=== PATIENT | female | born 1990 | race Caucasian/White ===

== ENCOUNTER 2017-08-09 17:41 | Emergency (ER) | payer SELFPAY ==
[~2017-08-09] VITALS: Ht 152.4 cm; Wt 54.4 kg
[~2017-08-09 17:41] MED LIST: ACHD5005 PO; ALPR1T PO; AMOX500C2 PO; BIRTH CONTROL; BSP10T PO; CEFD300C3 PO; CEPH500C PO; CODE-54 PO; CODE118S2 PO; CPR500T PO; CYCL10TA9 PO; DCS100C PO; DIAZ5TAB3; DIAZ5TAB3 PO; DOCU100C37 PO; FERR256T PO; HYDR-1231 PO; HYDR-3720; HYDR-690; HYDR-700 PO; HYDR-757 PO; HYDR1TAB PO; HYDR1TAB8 OP; IBP600T1 PO; IBUP-1773 PO; IRON1TAB94 PO; METO-354 PO; METR500T PO; MULT-239; ONDA8TAB9 PO; ONDAN4ODT PO; PNV11TAB PO; POLY17PO6 PO; PRC25SU PR; PREN-115 PO; PREN1TAB71 PO; PRM25T PO; PROM25SU10 PR; PRX20T PO; TMSL.4C PO; TRM50T PO; ZLP10T PO; [UNRECOGNIZED DRUG - REMARK]
[2017-08-09] MEDS ORDERED: LACTATED RINGERS 1,000 ML IV ONE (18:08)
--- NOTE | 2017-08-09 18:16 | ED Abdominal Pain ---
General Stated Complaint: ABD PAIN Source of Information: Patient Exam Limitations: No Limitations History of Present Illness Date Seen by Provider: Aug 09, 2017 Time Seen by Provider: 18:05 Initial Comments Patient presents to ER by private conveyance with a chief complaint of for 3 weeks she's had progressively worsening waxing and waning left lower quadrant abdominal pain that is not associated with her. Nor is it associated with bowel movements. She had a bowel movement today but she feels she's had to strain all been been constipated. She says she's had a fever with a MAXIMUM TEMPERATURE of 99.1F. She claims she's had some nausea and is nauseated presently but has not vomited or had any diarrhea, rash, cough or shortness of breath. She says she is also felt a little malaise and had some swollen lymph nodes in the back of her neck and felt like she has had a cold coming on as well. She denies any vaginal discharge or dysuria. Her last menstrual period ended 2 days ago. She's had a history of 2 C-sections on her abdomen no other surgeries. No recent trauma. She has not had this worked up nor she used any Tylenol, Motrin or other medicines [id number]. Allergies and Home Medications Allergies Coded Allergies: erythromycin base (Unverified Allergy, Mild, 11/02/08) Home Medications No Active Prescriptions or Reported Meds Review of Systems Constitutional: No chills, fever, malaise EENTM: No Blurred Vision, No Double Vision Respiratory: Denies Cough, Denies Shortness of Air Cardiovascular: Denies Chest Pain, Denies Palpitations Gastrointestinal: See HPI, Denies Abdomen Distended, Abdominal Pain, Constipated, Denies Diarrhea, Nausea, Denies Poor Appetite, Denies Poor Fluid Intake, Denies Vomiting Genitourinary: Denies Burning, Denies Discharge, Denies Drainage Musculoskeletal: No back pain, No joint pain Skin: No pruritus, No rash Past [id number] Hx Patient Social History Alcohol Use: Denies Use Recreational Drug Use: No Smoking Status: Former Smoker Type Used: Cigarettes Former Smoker, Quit: Feb 19, 2017 Recent Foreign Travel: No Contact w/Someone Who Travel: No Recent Hopitalizations: No Immunizations Up To Date Tetanus Booster (TDap): Unknown Date of Influenza Vaccine: Jul 09, 2012 Seasonal Allergies Seasonal Allergies: No Surgeries Surgeries: Section Reproductive System Hx Reproductive Disorders: No Sexually Transmitted Disease: Yes (Chlamydia) Family Medical History Significant Family History: No Pertinent Family Hx Family Medial History: FH: cancer GRANDPARENTS Physical Exam Vital Signs VS - Last 72 Hours, by Label 08/09/17 18:01 Temp 98.1 Pulse 128 Resp 18 B/P (MAP) 131/85 (100) Pulse Ox 95 Capillary Refill : General Appearance: WD/WN, no apparent distress HEENT: PERRL/EOMI, normal ENT inspection, TMs normal (bilateral TMs with a mild clear mucoid effusion.), pharynx normal (nonerythematous and no exudate) Neck: non-tender, full range of motion, supple, normal inspection, lymphadenopathy (R), lymphadenopathy (L) (mild shoddy bilateral posterior lymphadenopathy) Respiratory: chest non-tender, lungs clear, normal breath sounds, no respiratory distress, no accessory muscle use Cardiovascular: normal peripheral pulses, regular rate, rhythm, no edema Peripheral Pulses: 2+ Dorsalis Pedis (R), 2+ Left Dors-Pedis (L) Gastrointestinal: normal bowel sounds, non tender, soft, no organomegaly, No spleenomegaly Extremities: no pedal edema, normal capillary refill Back: normal inspection, no CVA tenderness, no vertebral tenderness Neurologic/Psychiatric: alert, oriented x 3 Skin: normal color, warm/dry Progress/Results/Core Measures Results/Orders Lab Results Laboratory Tests Test 08/09/17 18:20 08/09/17 18:35 Range/Units White Blood Count 8.1 4.3-11.0 10^3/uL Red Blood Count 4.61 4.35-5.85 10^6/uL Hemoglobin 14.0 11.5-16.0 G/DL Hematocrit 40 35-52 % Mean Corpuscular Volume 86 80-99 FL Mean Corpuscular Hemoglobin 30 25-34 PG Mean Corpuscular Hemoglobin Concent 35 32-36 G/DL Red Cell Distribution Width 11.3 10.0-14.5 % Platelet Count 309 130-400 10^3/uL Mean Platelet Volume 9.6 7.4-10.4 FL Neutrophils (%) (Auto) 58 42-75 % Lymphocytes (%) (Auto) 33 12-44 % Monocytes (%) (Auto) 5 0-12 % Eosinophils (%) (Auto) 4 0-10 % Basophils (%) (Auto) 0 0-10 % Neutrophils # (Auto) 4.7 1.8-7.8 X 10^3 Lymphocytes # (Auto) 2.7 1.0-4.0 X 10^3 Monocytes # (Auto) 0.4 0.0-1.0 X 10^3 Eosinophils # (Auto) 0.3 0.0-0.3 10^3/uL Basophils # (Auto) 0.0 0.0-0.1 10^3/uL Sodium Level 138 135-145 MMOL/L Potassium Level 3.8 3.6-5.0 MMOL/L Chloride Level 104 98-107 MMOL/L Carbon Dioxide Level 22 21-32 MMOL/L Anion Gap 12 5-14 MMOL/L Blood Urea Nitrogen 11 7-18 MG/DL Creatinine 0.74 0.60-1.30 MG/DL Estimat Glomerular Filtration Rate > 60 BUN/Creatinine Ratio 15 Glucose Level 97 70-105 MG/DL Calcium Level 9.4 8.5-10.1 MG/DL Total Bilirubin 0.4 0.1-1.0 MG/DL Aspartate Amino Transf (AST/SGOT) 15 5-34 U/L Alanine Aminotransferase (ALT/SGPT) 12 0-55 U/L Alkaline Phosphatase 43 40-136 U/L C-Reactive Protein High Sensitivity 0.01 0.00-0.50 MG/DL Total Protein 7.6 6.4-8.2 GM/DL Albumin 4.6 H 3.2-4.5 GM/DL Monoscreen NEGATIVE NEGATIVE Urine Color YELLOW Urine Clarity CLEAR Urine pH 7 5-9 Urine Specific [place] 1.010 L 1.016-1.022 Urine Protein NEGATIVE NEGATIVE Urine Glucose (UA) NEGATIVE NEGATIVE Urine Ketones NEGATIVE NEGATIVE Urine Nitrite NEGATIVE NEGATIVE Urine Bilirubin NEGATIVE NEGATIVE Urine Urobilinogen NORMAL NORMAL MG/DL Urine Leukocyte Esterase 1+ H NEGATIVE Urine RBC (Auto) 2+ H NEGATIVE Urine RBC 0-2 /HPF Urine WBC 2-5 /HPF Urine Squamous Epithelial Cells >50 H /HPF Urine Crystals NONE /LPF Urine Bacteria NEGATIVE /HPF Urine Casts NONE /LPF Urine Mucus NEGATIVE /LPF Urine Culture Indicated NO Urine Test NEGATIVE NEGATIVE Urine Opiates Screen NEGATIVE NEGATIVE Urine Oxycodone Screen NEGATIVE NEGATIVE Urine Methadone Screen NEGATIVE NEGATIVE Urine Propoxyphene Screen NEGATIVE NEGATIVE Urine Barbiturates Screen NEGATIVE NEGATIVE Ur Tricyclic Antidepressants Screen NEGATIVE NEGATIVE Urine Phencyclidine Screen NEGATIVE NEGATIVE Urine Amphetamines Screen NEGATIVE NEGATIVE Urine Methamphetamines Screen NEGATIVE NEGATIVE Urine Benzodiazepines Screen NEGATIVE NEGATIVE Urine Cocaine Screen NEGATIVE NEGATIVE Urine Cannabinoids Screen NEGATIVE NEGATIVE My Orders Orders - ROBERT BEYER Elisabeth Cbc With Automated Diff (08/09/17 18:08) Comprehensive Metabolic Panel (08/09/17 18:08) Hs C Reactive Protein (08/09/17 18:08) Drug Screen Stat (Urine) (08/09/17 18:08) Hcg,Qualitative Urine (08/09/17 18:08) Monotest (08/09/17 18:08) Ua Culture If Indicated (08/09/17 18:08) Saline Lock/Iv-Start (08/09/17 18:08) Lactated Ringers (Lr 1000 Ml Iv Solution (08/09/17 18:08) Ondansetron Injection (Zofran Injectio (08/09/17 18:30) Ketorolac Injection (Toradol Injection) (08/09/17 18:30) Medications Given in ED Current Medications Medications Dose Ordered Sig/Juaquin Route Start Time Stop Time Status Last Admin Dose Admin Ketorolac Tromethamine 15 mg ONCE ONCE IVP 08/09/17 18:30 08/09/17 18:31 DC 08/09/17 18:30 15 MG Lactated Ringer's 1,000 ml @ 0 mls/hr Q0M ONCE IV 08/09/17 18:08 08/09/17 18:12 DC 08/09/17 18:31 1,000 MLS/HR Ondansetron HCl 4 mg ONCE ONCE IVP 08/09/17 18:30 08/09/17 18:31 DC 08/09/17 18:29 4 MG Vital Signs/I&O Vital Sign - Last 12Hours 08/09/17 18:01 Temp 98.1 Pulse 128 Resp 18 B/P (MAP) 131/85 (100) Pulse Ox 95 Progress Note #1: Time: 18:14 Progress Note Patient claims some subjective fevers as well as some posterior lymphadenopathy. No splenomegaly and check a Monospot. Constipation could explain some of her goal waxing and waning abdominal pain. Before we do any imaging on her abdomen reveals no start some blood and urine. Other possibilities include things such as gynecologic pain such as a ovarian cyst. Her pain does not seem severe enough or reproducible so torsion is probably unlikely given the 3 weeks onset. PID is unlikely given her low level of discomfort nontender abdomen and no discharge or fever. She's not had any Tylenol or Motrin yet so we'll give her some ketorolac and Zofran. Progress Note #2: Time: 20:55 Progress Note Labs and vitals are unremarkable. Her nausea has gone however her pain did not totally go away. Differential still exists between: Versus gynecologic however does not seem to be emergent and we have discussed doing more workup with a CT scan of her abdomen pelvis versus try to get her colon cleaned out and then follow up if needed in the clinic for possible ultrasound of the pelvis and she would prefer the latter option. We will give her some opioids to use after she cleaned out well with MiraLAX in case her pain persists while she is waiting to get into her primary care physician as well as some nausea medicines. She is been given strict return precautions. Departure Impression Impression: Primary Impression: Constipation Qualified Codes: K59.00 - Constipation, unspecified Additional Impression: Left lower quadrant abdominal pain of unknown etiology Disposition: 01 HOME, SELF-CARE Condition: Improved Departure-Patient Inst. Decision time for Depature: 20:56 Referrals: [facility] (PCP) Primary Care Physician MUNA MASON (Family) Primary Care Physician Patient Instructions: Acute Abdomen (Belly Pain), Adult (DC) Add. Discharge Instructions: Drink lots of fluids. locomotive supervisor a bottle of MiraLAX and mix 1 capful in 8 ounces of whatever your fluid of choice and drink it up to 4 times a day until you feel that you have had a couple days of good loose stools. If your pain persists even after a good clean out of your: Been more likely her pain is due to something in the pelvis and you'll need to follow up with your primary care physician to get an ultrasound of the pelvis set up. If at that time the pain is unbearable and not controlled with heating pads, Tylenol 1000 g every 8 hours and/or ibuprofen 800 mg every 8 hours then you can use the breakthrough hydrocodone pain medicine. Hydrocodone will cause worsening constipation so do not use it while you're trying to have your colon cleanout. If however you develop fevers, intractable nausea and vomiting or severe worsening pain in her abdomen you should return to the ER for sooner evaluation and management. Scripts Hydrocodone Bit/Acetaminophen (Hydrocodone/Acetaminophen 5/325mg Tablet) 1 Tab Tab 1 EACH PO Q6H Y for BREAKTHROUGH PAIN, #10 TAB 0 Refills Prov: ROBERT BEYER 08/09/17 Ondansetron (Zofran Odt) 4 Mg Tab.rapdis 4 MG PO Q6H Y for NAUSEA/VOMITING-1ST LINE, #10 TAB 0 Refills Prov: ROBERT BEYER 08/09/17 Copy Copies To 1: RAKESH THOMAS TITUS J Aug 09, 2017 18:16
[2017-08-09 18:27] LABS: BASOPHILS % (AUTO) 0 % (0-10); EOSINOPHILS # (AUTO) 0.3 10^3/uL (0.0-0.3); EOSINOPHILS % (AUTO) 4 % (0-10); HEMATOCRIT 40 % (35-52); LYMPHOCYTES # (AUTO) 2.7 X 10^3 (1.0-4.0); LYMPHOCYTES % (AUTO) 33 % (12-44); MEAN CORPUSCULAR HEMOGLOBIN 30 PG (25-34); MEAN CORPUSCULAR HGB CONC 35 G/DL (32-36); MEAN CORPUSCULAR VOLUME 86 FL (80-99); MEAN PLATELET VOLUME 9.6 FL (7.4-10.4); MONOCYTES # (AUTO) 0.4 X 10^3 (0.0-1.0); MONOCYTES % (AUTO) 5 % (0-12); NEUTROPHILS # (AUTO) 4.7 X 10^3 (1.8-7.8); NEUTROPHILS % (AUTO) 58 % (42-75); PLATELET COUNT 309 10^3/uL (130-400); RED BLOOD COUNT 4.61 10^6/uL (4.35-5.85); RED CELL DISTRIBUTION WIDTH 11.3 % (10.0-14.5); WHITE BLOOD COUNT 8.1 10^3/uL (4.3-11.0)
[2017-08-09] MEDS ORDERED: ONDANSETRON 4 MG/2 ML (SDV) Z0FRAN IVP ONE (18:30)
[2017-08-09] MEDS ORDERED: KETOROLAC 30 MG/ML VIAL IVP ONE (18:30)
[2017-08-09 18:41] LABS: BILIRUBIN,URINE NEGATIVE (NEGATIVE); CLARITY,URINE CLEAR; COLOR,URINE YELLOW; GLUCOSE, URINE (UA) NEGATIVE (NEGATIVE); KETONES,URINE NEGATIVE (NEGATIVE); LEUKOCYTE ESTERASE ,URINE 1+ (NEGATIVE); NITRITE,URINE NEGATIVE (NEGATIVE); PH,URINE 7 (5-9); PROTEIN,URINE NEGATIVE (NEGATIVE); UROBILINOGEN,URINE NORMAL (NORMAL)
[2017-08-09 18:48] LABS: RBC,URINE 0-2 /HPF
[2017-08-09 18:49] LABS: BACTERIA,URINE NEGATIVE /HPF; SQUAMOUS EPITHELIAL CELL,UR >50 /HPF
[2017-08-09 18:52] LABS: ALANINE AMINOTRANSFERASE 12 U/L (0-55); ALBUMIN 4.6 GM/DL (3.2-4.5); ALKALINE PHOSPHATASE 43 U/L (40-136); BILIRUBIN,TOTAL 0.4 MG/DL (0.1-1.0); BUN/CREATININE RATIO 15; CALCIUM 9.4 MG/DL (8.5-10.1); CARBON DIOXIDE 22 MMOL/L (21-32); CHLORIDE 104 MMOL/L (98-107); CREATININE SERUM 0.74 MG/DL (0.60-1.30); GFR ESTIMATED > 60; GLUCOSE 97 MG/DL (70-105); POTASSIUM 3.8 MMOL/L (3.6-5.0); SODIUM 138 MMOL/L (135-145); TOTAL PROTEIN 7.6 GM/DL (6.4-8.2)
[2017-08-09 18:56] LABS: AMPHETAMINE SCREEN, URINE NEGATIVE (NEGATIVE); BARBITURATE SCREEN URINE NEGATIVE (NEGATIVE); BENZODIAZEPINES SCREEN URINE NEGATIVE (NEGATIVE); CANNABINOID SCREEN, URINE NEGATIVE (NEGATIVE); COCAINE SCREEN URINE NEGATIVE (NEGATIVE); HCG,QUALITATIVE URINE NEGATIVE (NEGATIVE); METHADONE STAT NEGATIVE (NEGATIVE); METHAMPHETAMINE SCREEN URINE S NEGATIVE (NEGATIVE); OPIATE SCREEN URINE NEGATIVE (NEGATIVE); OXYCODONE STAT NEGATIVE (NEGATIVE); PROPOXYPHENE STAT NEGATIVE (NEGATIVE); TRICYCLIC ANTIDEPRESSANTS SCRE NEGATIVE (NEGATIVE)
--- OUTSIDE RECORDS SUMMARY | 2017-08-09 19:13 | XMS REPORT ---
Author MAHSA Benz Organization [employer] Address Unknown Phone Unavailable Care Team Providers Care Lime Filter Operator Name Role Phone MAHSA MELGAR CP Unavailable Allergies, Adverse Reactions, Alerts Substance Reaction Event Type Reglan hallucinations Drug Allergy Erythromycin Info Not Available Drug Allergy Seroquel Xr 50 Mg Tablet Extended Release 24 Hr Made pt very sleepy Non Drug Allergy Problems Problem Type Condition Code Onset Dates Condition Status Problem Previous delivery, unspecified as to episode of care or not applicable 654.20 Active Assessment Scabies B86 Active Problem Major depressive disorder, recurrent episode, 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 Active Problem Encounter for long-term (current) use of other medications V58.69 Active Problem PTSD (post-traumatic stress disorder) F43.10 Active Problem examination or test, positive result V72.42 Active Problem Major depressive disorder, recurrent episode, moderate 296.32 Active Problem Tobacco use disorder complicating , childbirth, or the puerperium, unspecified as to episode of care or not applicable 649.00 Active Problem Supervision of other normal V22.1 Active Medications Medication Code System Code Instructions Start Date End Date Status Dosage Naproxen [facility] [address]-90 250 MG Orally Twice a day 1 tablet Hydrocodone-Acetaminophen [facility] [address]-83 5-325 MG Orally every 6 hrs 1 tablet as needed Permethrin [facility] [address]-20 5 % Externally once January 16, 2016 apply neck down, wash off after 8-12 hours Procedures Procedure Coding System Code Date Office Visit, Est Pt., Level 3 CPT-4 22566 January 16, 2016 Vital Signs Date/Time: January 16, 2016 Cardiac Monitoring Heart Rate 90 bpm Weight 121.8 lbs Height 61 in Blood Pressure Diastolic 72 mmHg Blood Pressure Systolic 124 mmHg Results No Known Results Summary Purpose [employer] Submission
--- OUTSIDE RECORDS SUMMARY | 2017-08-09 19:13 | XMS REPORT ---
Author Author MAHSA MELGAR Organization [employer] Address Unknown Phone Unavailable Care Team Providers Care Sky Diver Name Role Phone MAHSA MELGAR Unavailable Allergies No Known Allergies Problems Problem Type Condition Code Onset Dates Condition Status Problem Previous delivery, unspecified as to episode of care or not applicable 654.20 Active Problem Major depressive disorder, recurrent episode, [...] Instructions Start Date End Date Status Dosage Permethrin [facility] [address]-39 5 % Externally Once a day January 18, 2016 apply neck down, wash off after 8-12 hours Results No Known Results Summary Purpose [employer] Submission
--- OUTSIDE RECORDS SUMMARY | 2017-08-09 19:13 | XMS REPORT ---
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 Active 465364717 Problem Previous delivery, unspecified as to episode of care or not applicable 654.20 Active 454432641 Problem Supervision of other normal V22.1 Active 058285959 Problem Major depressive disorder, recurrent episode, moderate 296.32 Active 69031324 Problem Tobacco use disorder complicating , childbirth, or the puerperium, unspecified as to episode of care or not applicable 649.00 Active ALLERGIES Substance Reaction Event Type Date Status Reglan hallucinations Drug Allergy Dec, Active Erythromycin Unknown Drug Allergy Dec, Active Seroquel Xr 50 Mg Tablet Extended Release 24 Hr Made pt very sleepy Non Drug Allergy Dec, Active SOCIAL HISTORY Never Assessed PLAN OF CARE Activity Details Follow Up prn Reason: VITAL SIGNS Height 61 in 2016-12-09 Weight 115.8 lbs 2016-12-09 Temperature 98.8 degrees Fahrenheit 2016-12-09 Heart Rate 84 bpm 2016-12-09 Respiratory Rate 18 2016-12-09 BMI 21.88 kg/m2 2016-12-09 Blood pressure systolic 112 mmHg 2016-12-09 Blood pressure diastolic 62 mmHg 2016-12-09 MEDICATIONS Medication Instructions Dosage Frequency Start Date End Date Duration Status Bactrim DS 800-160 MG Orally Twice a day 1 tablet 12h Dec,Dec 10 day(s) Active RESULTS No Results PROCEDURES No Known procedures IMMUNIZATIONS No Known Immunizations MEDICAL (GENERAL) HISTORY Type Description Date Medical History Anemia Medical History Back Trouble Surgical History C section 01/30/2013 Surgical History C section 03/17/2015 Hospitalization History C section 01/30/2013 Hospitalization History C section 03/17/2015
--- OUTSIDE RECORDS SUMMARY | 2017-08-09 19:13 | XMS REPORT ---
Author Author CONCEPCION DAILY Organization [employer] Address Unknown Phone Unavailable Care Team Providers Care Resilient Tile Installer Name Role Phone CONCEPCION DAILY CP Unavailable Allergies, Adverse Reactions, Alerts Substance Reaction Event Type Erythromycin Info Not Available Drug Allergy Problems Problem Type Condition Code Onset Dates Condition Status Assessment Pityriasis L21.0 Active Medications Medication Code System Code Instructions Start Date End Date Status Dosage Triamcinolone Acetonide [facility] [address]-44 0.1 % Externally Twice a day May 09, 2016 1 application to affected area HydrOXYzine HCl [facility] [address]-87 25 MG Orally every 8 hrs May 09, 2016 1 tablet as needed PredniSONE [facility] [address]-25 20 mg Orally Once a day May 09, 2016 May 14, 2016 2 tablets Procedures Procedure Coding System Code Date Office Visit, Est Pt., Level 3 CPT-4 99035 May 09, 2016 Vital Signs Date/Time: May 09, 2016 Cardiac Monitoring Heart Rate 112 bpm Weight 117.2 lbs Height 5 ft 1 in in BMI 22.14 Index Blood Pressure Diastolic 72 mmHg Blood Pressure Systolic 126 mmHg Results No Known Results Summary Purpose [employer] Submission
--- OUTSIDE RECORDS SUMMARY | 2017-08-09 19:13 | XMS REPORT ---
Author Author LAILA LEAVITT Organization [employer] Address Unknown Phone Unavailable Care Team Providers Care Commander Internal Affairs Name Role Phone LAILA LEAVITT CP Unavailable Allergies, Adverse Reactions, Alerts Substance Reaction Event Type Reglan hallucinations Drug Allergy Seroquel Xr 50 Mg Tablet Extended Release 24 Hr Made pt very sleepy Non Drug Allergy Problems Problem Type Condition Code Onset Dates Condition Status Problem Tobacco use disorder complicating , childbirth, or the puerperium, unspecified as to episode of care or not applicable 649.00 Active Problem Supervision of other normal V22.1 Active Problem Encounter for long-term (current) use of other medications V58.69 Active Problem Previous delivery, unspecified as to episode of care or not applicable 654.20 Active Assessment Dental examination V72.2 Active Problem examination or test, positive result V72.42 Active Problem Major depressive disorder, recurrent episode, moderate 296.32 Active Medications Medication Code System Code Instructions Start Date End Date Status Dosage ibuprofen ND 0 not defined MiraLax [facility] [address]-54 not defined Morris [facility] [address]-09 5-325 MG Orally every 6 hours Mar 28, 2015 Apr 01, 2015 1 tablet as needed Amoxicillin [facility] [address]-60 500 MG Orally every 6 hrs Mar 28, 2015 Apr 04, 2015 1 tablet Procedures Procedure Coding System Code Date INTRAORL-PERIAPICAL 1 FILM 93467 CPT-4 D0220 Mar 28, 2015 BITEWING - SINGLE FILM CPT-4 D0270 Mar 28, 2015 LTD ORAL EVALUATION - PROBLEM FOCUS CPT-4 D0140 Mar 28, 2015 Vital Signs Date/Time: Mar 28, 2015 Blood Pressure Diastolic 79 mmHg Blood Pressure Systolic 115 mmHg Height 61 in Results No Known Results Summary Purpose [employer] Submission
--- OUTSIDE RECORDS SUMMARY | 2017-08-09 19:14 | XMS REPORT ---
Author Author ISIDRO SMITH Organization [employer] Address Unknown Phone Unavailable Care Team Providers Care Credentialing Specialist Name Role Phone ISIDRO SMITH CP Unavailable Allergies, Adverse Reactions, Alerts Substance Reaction Event Type Erythromycin Info Not Available Drug Allergy Problems Problem Type Condition Code Onset Dates Condition Status Assessment Axillary pain, unspecified laterality M79.629 Active Medications No Known Medications Procedures Procedure Coding System Code Date Office Visit, New Pt., Level 1 CPT-4 64089 Apr 13, 2016 Vital Signs Date/Time: Apr 13, 2016 Cardiac Monitoring Heart Rate 76 bpm Weight 118 lbs Height 5 ft 1 in in BMI 22.29 Index Blood Pressure Diastolic 70 mmHg Blood Pressure Systolic 120 mmHg Results No Known Results Summary Purpose [employer] Submission
[2017-08-09] MEDS ORDERED: ONDA4TAB8 PO (20:59)
[2017-08-09] MEDS ORDERED: ACHD5005 PO (20:59)
[2017-08-09 21:07] VITALS: BP 0/0
== END 2017-08-09 21:07 | disposition home or self-care (01) ==
LOC: EDUNIT# 17:41 → ER 17:42
DX: K59.00 Constipation, unspecified (principal); R10.32 Left lower quadrant pain; Z87.891 Personal history of nicotine dependence; Z87.59 Personal history of other complications of pregnancy, childbirth and the puerperium; Z86.19 Personal history of other infectious and parasitic diseases
CPT/HCPCS: 36415; 80053; 80306; 81000; 84703; 85025; 86141; 86308; 96374; 96375

== ENCOUNTER 2020-05-15 19:27 | Observation (INO) | payer SELFPAY ==
[~2020-05-15] VITALS: Ht 152 cm; Wt 50.0 kg
[~2020-05-15 19:27] MED LIST changes: +HYDR-4226 PO; -HYDR-757 PO; +ONDA4TAB8 PO
[2020-05-15] MEDS ORDERED: NS IV 1000 ML 1,000 ML IV SCH ×3 (19:33→22:13)
[2020-05-15] MEDS ORDERED: ONDANSETRON 4 MG/2 ML (SDV) Z0FRAN IVP ONE (19:45)
--- NOTE | 2020-05-15 19:46 | ED Abdominal Pain ---
General Stated Complaint: ABD PAIN; VOMITING History of Present Illness Date Seen by Provider: May 15, 2020 Time Seen by Provider: 19:35 Initial Comments 30-year old female presents for right abdominal pain and vomiting since 1600 today. She reports multiple episodes. She denies any diarrhea or constipation. She's had no previous abdominal surgeries. She has been trying to take sips of water with no improvement in her symptoms. Timing/Duration: 4-6 Hours Severity/Quality: Moderate Location: RLQ Radiation: No Radiation Associated Symptoms: No Fever/Chills, No Headache, No Heartburn; Nausea/Vomiting Allergies and Home Medications Allergies Coded Allergies: erythromycin base (Unverified Allergy, Mild, 11/02/08) Home Medications Hydrocodone Bit/Acetaminophen 1 Tab Tab, 1 EACH PO Q6H PRN for BREAKTHROUGH PAIN Prescribed by: ROBERT BEYER on 08/09/172058 Ondansetron 4 Mg Tab.rapdis, 4 MG PO Q6H PRN for NAUSEA/VOMITING-1ST LINE Prescribed by: ROBERT BEYER on 08/09/172058 Patient Home Medication List Home Medication List Reviewed: Yes Review of Systems Review of Systems Constitutional: no symptoms reported, see HPI Gastrointestinal: See HPI, Abdominal Pain; Denies Constipated, Denies Diarrhea; Nausea, Vomiting All Other Systems Reviewed Negative Unless Noted: Yes Past Eidpwxh-Eitnpr-Nhvdtf Hx Past Med/Social Hx: Reviewed Nursing Past Med/Soc Hx Patient Social History Smoking Status: Light Tobacco Smoker (1/2 pack a month) Type Used: Cigarettes Former Smoker, Quit: Feb 19, 2017 Recent Foreign Travel: No Contact w/Someone Who Travel: No Recent Hopitalizations: No Immunizations Up To Date Tetanus Booster (TDap): Unknown Date of Influenza Vaccine: Jul 09, 2012 Seasonal Allergies Seasonal Allergies: No Past Medical History Surgeries: Yes (D&C) Section Respiratory: No Cardiac: Yes (SVT) Neurological: No Reproductive Disorders: No Sexually Transmitted Disease: Yes (Chlamydia) Gastrointestinal: No Musculoskeletal: No Endocrine: No Cancer: No Psychosocial: No Integumentary: No Blood Disorders: No Family Medical History FH: cancer GRANDPARENTS No Pertinent Family Hx Physical Exam Vital Signs Vital Signs - First Documented 05/15/20 19:34 Temp 36.5 Pulse 103 Resp 16 B/P (MAP) 129/90 (103) Pulse Ox 98 O2 Delivery Room Air Capillary Refill : Height/Weight/BMI Height: 5'1" Weight: 120lbs. 9.0oz. 54.343411jg; BMI Method:Stated General Appearance: WD/WN, no apparent distress HEENT: PERRL/EOMI, normal ENT inspection, TMs normal, pharynx normal, other (oral mucosa pink and moist) Neck: non-tender, full range of motion, supple, normal inspection Respiratory: chest non-tender, lungs clear, normal breath sounds Cardiovascular: normal peripheral pulses, regular rate, rhythm Gastrointestinal: normal bowel sounds, soft; No distended, No rebound; tenderness (generalized); No mass Extremities: normal range of motion, non-tender, normal inspection, no pedal edema Back: normal inspection, no vertebral tenderness, CVA tenderness (R) Neurologic/Psychiatric: no motor/sensory deficits, alert, normal mood/affect, oriented x 3 Skin: normal color, warm/dry Progress/Results/Core Measures Results/Orders Lab Results Laboratory Tests Test 05/15/20 19:40 05/15/20 20:19 Range/Units Urine Color YELLOW Urine Clarity CLEAR Urine pH 5.5 5-9 Urine Specific [place] >=1.030 1.016-1.022 Urine Protein TRACE H NEGATIVE Urine Glucose (UA) NEGATIVE NEGATIVE Urine Ketones 3+ H NEGATIVE Urine Nitrite NEGATIVE NEGATIVE Urine Bilirubin NEGATIVE NEGATIVE Urine Urobilinogen 0.2 < = 1.0 MG/DL Urine Leukocyte Esterase NEGATIVE NEGATIVE Urine RBC (Auto) 2+ H NEGATIVE Urine RBC NONE /HPF Urine WBC NONE /HPF Urine Squamous Epithelial Cells 2-5 /HPF Urine Crystals PRESENT H /LPF Urine Calcium Oxalate Crystals MODERATE H /LPF Urine Bacteria TRACE /HPF Urine Casts NONE /LPF Urine Mucus MODERATE H /LPF Urine Culture Indicated NO Urine Opiates Screen NEGATIVE NEGATIVE Urine Oxycodone Screen NEGATIVE NEGATIVE Urine Methadone Screen NEGATIVE NEGATIVE Urine Propoxyphene Screen NEGATIVE NEGATIVE Urine Barbiturates Screen NEGATIVE NEGATIVE Ur Tricyclic Antidepressants Screen NEGATIVE NEGATIVE Urine Phencyclidine Screen NEGATIVE NEGATIVE Urine Amphetamines Screen NEGATIVE NEGATIVE Urine Methamphetamines Screen NEGATIVE NEGATIVE Urine Benzodiazepines Screen POSITIVE H NEGATIVE Urine Cocaine Screen NEGATIVE NEGATIVE Urine Cannabinoids Screen POSITIVE H NEGATIVE White Blood Count 16.0 H 4.3-11.0 10^3/uL Red Blood Count 4.43 3.80-5.11 10^6/uL Hemoglobin 13.2 11.5-16.0 g/dL Hematocrit 39 35-52 % Mean Corpuscular Volume 88 80-99 fL Mean Corpuscular Hemoglobin 30 25-34 pg Mean Corpuscular Hemoglobin Concent 34 32-36 g/dL Red Cell Distribution Width 11.6 10.0-14.5 % Platelet Count 371 130-400 10^3/uL Mean Platelet Volume 9.9 9.0-12.2 fL Immature Granulocyte % (Auto) 1 % Neutrophils (%) (Auto) 79 H 42-75 % Lymphocytes (%) (Auto) 16 12-44 % Monocytes (%) (Auto) 4 0-12 % Eosinophils (%) (Auto) 1 0-10 % Basophils (%) (Auto) 0 0-10 % Neutrophils # (Auto) 12.6 H 1.8-7.8 10^3/uL Lymphocytes # (Auto) 2.5 1.0-4.0 10^3/uL Monocytes # (Auto) 0.6 0.0-1.0 10^3/uL Eosinophils # (Auto) 0.1 0.0-0.3 10^3/uL Basophils # (Auto) 0.0 0.0-0.1 10^3/uL Immature Granulocyte # (Auto) 0.1 0.0-0.1 10^3/uL Neutrophils % (Manual) 81 % Lymphocytes % (Manual) 12 % Monocytes % (Manual) 2 % Eosinophils % (Manual) 3 % Basophils % (Manual) 0 % Band Neutrophils 2 % Blood Morphology Comment NORMAL Sodium Level 140 135-145 MMOL/L Potassium Level 3.9 3.6-5.0 MMOL/L Chloride Level 105 98-107 MMOL/L Carbon Dioxide Level 18 L 21-32 MMOL/L Anion Gap 17 H 5-14 MMOL/L Blood Urea Nitrogen 12 7-18 MG/DL Creatinine 0.84 0.60-1.30 MG/DL Estimat Glomerular Filtration Rate > 60 BUN/Creatinine Ratio 14 Glucose Level 137 H 70-105 MG/DL Calcium Level 9.7 8.5-10.1 MG/DL Corrected Calcium 8.5-10.1 MG/DL Total Bilirubin 0.5 0.1-1.0 MG/DL Aspartate Amino Transf (AST/SGOT) 15 5-34 U/L Alanine Aminotransferase (ALT/SGPT) 12 0-55 U/L Alkaline Phosphatase 46 40-136 U/L Total Protein 7.4 6.4-8.2 GM/DL Albumin 4.8 H 3.2-4.5 GM/DL My Orders Orders - SHARDA HENLEY Comprehensive Metabolic Panel (05/15/20 19:33) Ua Culture If Indicated (05/15/20 19:33) Urine Bedside (05/15/20 19:33) Cbc With Automated Diff (05/15/20 19:33) Ed Iv/Invasive Line Start (05/15/20 19:33) Ns Iv 1000 Ml (Sodium Chloride 0.9%) (05/15/20 19:33) Ondansetron Injection (Zofran Injectio (05/15/20 19:45) Ondansetron Oral Dissolve Tab (Zofran (05/15/20 19:52) Ondansetron Oral Dissolve Tab (Zofran (05/15/20 19:51) Drug Screen Stat (Urine) (05/15/20 20:06) Manual Differential (05/15/20 20:19) Fentanyl Injection (Sublimaze Injection (05/15/20 21:00) Ct Abd/Pelvis Wo(Kidney Stone) (05/15/20 20:59) Ed Iv/Invasive Line Start (05/15/20 21:13) Ns Iv 1000 Ml (Sodium Chloride 0.9%) (05/15/20 21:13) Promethazine Injection (Phenergan Injec (05/15/20 21:45) Promethazine Injection (Phenergan Injec (05/15/20 21:31) Ketorolac Injection (Toradol Injection) (05/15/20 21:38) Ceftriaxone For Iv Use (Rocephin For I (05/15/20 22:15) Medications Given in ED Current Medications Medications Dose Ordered Sig/Juaquin Route Start Time Stop Time Status Last Admin Dose Admin Fentanyl Citrate 25 mcg ONCE ONCE IVP 05/15/20 21:00 05/15/20 21:01 DC 05/15/20 21:12 25 MCG Ondansetron HCl 8 mg ONCE ONCE IVP 05/15/20 19:45 05/15/20 19:46 DC 05/15/20 20:22 8 MG Promethazine HCl 25 mg ONCE ONCE IVP 05/15/20 21:45 05/15/20 21:46 DC 05/15/20 21:33 25 MG Vital Signs/I&O 05/15/20 19:34 Temp 36.5 Pulse 103 Resp 16 B/P (MAP) 129/90 (103) Pulse Ox 98 O2 Delivery Room Air Progress Progress Note : Time: 19:35 Progress Note patient seen and evaluated, will give normal saline 1 L per IV, labs, Zofran 8 mg IV. 1999 Unable to access IV after 3 attempts, will give Zofran PO. 2014 IV access obtained, NS started. 2044 Patient complains of pain 9/10 right flank, will give Fentanyl [address] abdomen for kidney stone 2099 NS 1 L per IV. Resting in bed, cold washcloth to forehead and warm blanket in place. Nausea improved. 2129 3 mm obstructing stone to right UVJ. Nausea has returned, will give Pherngan 25 mg IV. 2134 Patient agreeable with plan to admit. Spoke to Dr. Godfrey, will admit for intractable nausea and vomiting. Discussed with Dr. Falcon, he will see the patient tomorrow, later afternoon. Will give Rocephin 1 gm IV. 2199 patient reports trace improvement, no further retching. No requests at this time. Diagnostic Imaging Diagonstic Imaging: CT Plain Films/CT/US/NM/MRI: abdomen, pelvis Comments NAME: MAYANKELLENAYE Pelaez [facility] REC#: [id number] PT STATUS: REG ER : 1990 PHYSICIAN: SHARDA HENLEY ADMIT DATE: 05/15/20/ER Draft Date of Exam:05/15/20 CT ABD/PELVIS WO(KIDNEY STONE) PROCEDURE: CT urinary tract, rule out kidney stone. TECHNIQUE: Multiple contiguous axial images were obtained through the abdomen and pelvis without the use of intravenous contrast. Auto Exposure Controls were utilized during the CT exam to meet ALARA standards for radiation dose reduction. INDICATION: Epigastric pain. Nausea. FINDINGS: The lung bases are clear. The liver, gallbladder and bile ducts are normal. The spleen, pancreas and adrenals are normal. There is mild pelvocaliectasis of the right kidney. The right ureter is mildly prominent. There is a 2-3 mm calcification seen near the ureterovesical junction on the right which I believe represents a stone at this site. The left kidney and ureter are normal. No intrinsic abnormality of the bladder is seen. There is no adnexal mass. There is no free fluid. No acute bowel abnormality is seen. There is no free intraperitoneal air or fluid. Believe a portion of the appendix is visualized and appears normal. There is no acute bony abnormality. IMPRESSION: There is a 3 mm calculus at the ureterovesical junction on the right causing obstruction at this site. Dictated on workstation # [id number] Reviewed: Reviewed by Me Departure Impression Primary Impression: Nephrolithiasis Additional Impression: Nausea and vomiting Qualified Codes: R11.2 - Nausea with vomiting, unspecified Disposition: ADMITTED INPATIENT Condition: Stable Admissions Decision to Admit Reason: Admit from ER (General) Decision to Admit/Date: May 15, 2020 Time/Decision to Admit Time: 21:30 Departure-Patient Inst. Referrals: [facility] (PCP) Primary Care Physician MUNA MASON (Family) Primary Care Physician SHARDA HENLEY May 15, 2020 19:46
[2020-05-15 19:48] LABS: BILIRUBIN,URINE NEGATIVE (NEGATIVE); CLARITY,URINE CLEAR; COLOR,URINE YELLOW; GLUCOSE, URINE (UA) NEGATIVE (NEGATIVE); KETONES,URINE 3+ (NEGATIVE); LEUKOCYTE ESTERASE ,URINE NEGATIVE (NEGATIVE); NITRITE,URINE NEGATIVE (NEGATIVE); PH,URINE 5.5 (5-9); PROTEIN,URINE TRACE (NEGATIVE)
--- NOTE | 2020-05-15 19:48 | NUR ---
ATTEMPTS X3 FOR IV ACCESS W/O SUCCESS. PT NOW C/O NUMBNESS ET TINGLING IN HER HANDS ET FEET, FACE ET NUMBNESS IN HER "STOMACH". NON REBREATHER PLACED ON PT'S FACE ET PT ENCOURAGED TO TAKE SLOW DEEP BREATHS ET REASSURED AT THIS TIME.
[2020-05-15] MEDS ORDERED: ONDANSETRON 4 MG (ZOFRAN) ORAL DISSOLVE TAB ONE (19:51)
[2020-05-15] MEDS ORDERED: ONDANSETRON 4 MG (ZOFRAN) ORAL DISSOLVE TAB SL STA (19:52)
[2020-05-15 19:57] LABS: BACTERIA,URINE TRACE /HPF; CALCIUM OXALATE CRYSTALS,UR MODERATE /LPF
--- NOTE | 2020-05-15 20:00 | NUR ---
SHARDA BONNERP TO BEDSIDE TO ATTEMPT FOR IV ACCESS
[2020-05-15 20:22] LABS: AMPHETAMINE SCREEN, URINE NEGATIVE (NEGATIVE); BARBITURATE SCREEN URINE NEGATIVE (NEGATIVE); BENZODIAZEPINES SCREEN URINE POSITIVE (NEGATIVE); CANNABINOID SCREEN, URINE POSITIVE (NEGATIVE); COCAINE SCREEN URINE NEGATIVE (NEGATIVE); METHADONE STAT NEGATIVE (NEGATIVE); METHAMPHETAMINE SCREEN URINE S NEGATIVE (NEGATIVE); OPIATE SCREEN URINE NEGATIVE (NEGATIVE); OXYCODONE STAT NEGATIVE (NEGATIVE); PROPOXYPHENE STAT NEGATIVE (NEGATIVE); TRICYCLIC ANTIDEPRESSANTS SCRE NEGATIVE (NEGATIVE)
[2020-05-15 20:26] LABS: BASOPHILS % (AUTO) 0 % (0-10); EOSINOPHILS # (AUTO) 0.1 10^3/uL (0.0-0.3); EOSINOPHILS % (AUTO) 1 % (0-10); HEMATOCRIT 39 % (35-52); HEMOGLOBIN 13.2 g/dL (11.5-16.0); LYMPHOCYTES # (AUTO) 2.5 10^3/uL (1.0-4.0); LYMPHOCYTES % (AUTO) 16 % (12-44); MEAN CORPUSCULAR HEMOGLOBIN 30 pg (25-34); MEAN CORPUSCULAR HGB CONC 34 g/dL (32-36); MEAN CORPUSCULAR VOLUME 88 fL (80-99); MEAN PLATELET VOLUME 9.9 fL (9.0-12.2); MONOCYTES # (AUTO) 0.6 10^3/uL (0.0-1.0); MONOCYTES % (AUTO) 4 % (0-12); NEUTROPHILS # (AUTO) 12.6 10^3/uL (1.8-7.8); NEUTROPHILS % (AUTO) 79 % (42-75); PLATELET COUNT 371 10^3/uL (130-400)
[2020-05-15 20:35] LABS: ALBUMIN 4.8 GM/DL (3.2-4.5); CHLORIDE 105 MMOL/L (98-107); POTASSIUM 3.9 MMOL/L (3.6-5.0); SODIUM 140 MMOL/L (135-145)
[2020-05-15 20:37] LABS: CALCIUM 9.7 MG/DL (8.5-10.1)
--- NOTE | 2020-05-15 20:37 | NUR ---
PT NOW REQUESTING MEDS FOR PAIN, STATES SHE "HURTS ALL OVER" AT THIS TIME.
[2020-05-15 20:38] LABS: GLUCOSE 137 MG/DL (70-105); TOTAL PROTEIN 7.4 GM/DL (6.4-8.2)
[2020-05-15 20:39] LABS: CARBON DIOXIDE 18 MMOL/L (21-32)
--- NOTE | 2020-05-15 20:39 | NUR ---
PROVIDER AWARE OF PT'S REQUEST AT THIS TIME.
[2020-05-15 20:40] LABS: BILIRUBIN,TOTAL 0.5 MG/DL (0.1-1.0)
[2020-05-15 20:41] LABS: ALKALINE PHOSPHATASE 46 U/L (40-136); CREATININE SERUM 0.84 MG/DL (0.60-1.30); GFR ESTIMATED > 60
[2020-05-15 20:42] LABS: BUN/CREATININE RATIO 14
[2020-05-15 20:44] LABS: ALANINE AMINOTRANSFERASE 12 U/L (0-55); BAND NEUTROPHILS 2 %; BASOPHILS % (MANUAL) 0 %; EOSINOPHILS % (MANUAL) 3 %; LYMPHOCYTES % (MANUAL) 12 %; MONOCYTES % (MANUAL) 2 %; NEUTROPHILS % (MANUAL) 81 %; RBC MORPH NORMAL
[2020-05-15] MEDS ORDERED: fentaNYL INJECTION 100 MCG/2 ML AMP IVP ONE (21:00)
[2020-05-15] MEDS ORDERED: HOLD METFORMIN - RECEIVED CONTRAST 20 ML VIAL IV SCH (21:00)
[2020-05-15] MEDS ORDERED: IOHEXOL 350 MG/ML 100 ML (OMNIPAQUE 350) VIAL IV ONE (21:00)
[2020-05-15] MEDS ORDERED: NS 100 ML (IVPB) BAG IV ONE (21:00)
--- NOTE | 2020-05-15 21:18 | Diagnostic Imaging Report ---
PROCEDURE: CT urinary tract, rule out kidney stone. TECHNIQUE: Multiple contiguous axial images were obtained through the abdomen and pelvis without the use of intravenous contrast. Auto Exposure Controls were utilized during the CT exam to meet ALARA standards for radiation dose reduction. INDICATION: Epigastric pain. Nausea. FINDINGS: The lung bases are clear. The liver, gallbladder and bile ducts are normal. The spleen, pancreas and adrenals are normal. There is mild pelvocaliectasis of the right kidney. The right ureter is mildly prominent. There is a 2-3 mm calcification seen near the ureterovesical junction on the right which I believe represents a stone at this site. The left kidney and ureter are normal. No intrinsic abnormality of the bladder is seen. There is no adnexal mass. There is no free fluid. No acute bowel abnormality is seen. There is no free intraperitoneal air or fluid. Believe a portion of the appendix is visualized and appears normal. There is no acute bony abnormality. IMPRESSION: There is a 3 mm calculus at the ureterovesical junction on the right causing obstruction at this site. Dictated by: Dictated on workstation # [id number]
[2020-05-15] MEDS ORDERED: PROMETHAZINE INJ 25 MG/ML (PHENERGAN) AMP ONE (21:31)
[2020-05-15] MEDS ORDERED: KETOROLAC 30 MG/ML VIAL IVP STA (21:38)
[2020-05-15] MEDS ORDERED: PROMETHAZINE INJ 25 MG/ML (PHENERGAN) AMP IVP ONE (21:45)
[2020-05-15] MEDS ORDERED: cefTRIAXone FOR IV USE 1,000 MG in WATER (STERILE) FOR INJECTION 10 ML IV ONE (22:15)
[2020-05-15] MEDS ORDERED: WATER (STERILE) FOR INJECTION 10 ML ONE (22:20)
[2020-05-15] MEDS ORDERED: cefTRIAXone 1,000 MG IV (ROCEPHIN) VIAL ONE (22:20)
[2020-05-15 23:11] VITALS: BP 117/72
[2020-05-15 23:26] VITALS: BP 117/72
[2020-05-15] MEDS ORDERED: ONDANSETRON 4 MG/2 ML (SDV) Z0FRAN IVP PRN (23:45)
--- NOTE | 2020-05-16 00:03 | NUR ---
JAVI TALLEY admitted to room 415-1, with an admitting diagnosis of NEPHROLITHIASIS/INTRACTABLE N/V, on 05/15/20 via wheelchair, accompanied by Staff.JAVI TALLEY introduced to surroundings, call light, bed controls, phone, TV, temperature control, lights, meal times, smoking policy, visitor policy, side rail policy, bathrooms and showers. Patient Rights given to patient in the handbook. JAVI TALLEY verbalizes understanding that [facility] is not responsible for the loss or damage to any personal effects or valuables that are kept in the patients posession during their hospitalization.
[2020-05-16] MEDS ORDERED: PROCHLORPERAZINE 10 MG/2ML INJ (COMPAZINE) IV PRN (00:15)
[2020-05-16] MEDS ORDERED: fentaNYL INJECTION 100 MCG/2 ML AMP IVP PRN (00:15)
[2020-05-16] MEDS ORDERED: cefTRIAXone 1,000 MG IV (ROCEPHIN) VIAL ONE (00:16)
[2020-05-16] MEDS ORDERED: WATER (STERILE) FOR INJECTION 10 ML ONE (00:16)
[2020-05-16] MEDS: KETOROLAC 30 MG/ML VIAL IVP PRN ×2 (00:21→10:14)
[2020-05-16] MEDS: NS IV 1000 ML 1,000 ML IV SCH ×2 (00:45→07:31)
[2020-05-16 04:00] VITALS: BP 102/68
[2020-05-16 05:04] LABS: BASOPHILS % (AUTO) 0 % (0-10); EOSINOPHILS % (AUTO) 0 % (0-10); HEMATOCRIT 31 % (35-52); HEMOGLOBIN 10.1 g/dL (11.5-16.0); LYMPHOCYTES # (AUTO) 0.9 10^3/uL (1.0-4.0); LYMPHOCYTES % (AUTO) 5 % (12-44); MEAN CORPUSCULAR HEMOGLOBIN 30 pg (25-34); MEAN CORPUSCULAR HGB CONC 33 g/dL (32-36); MEAN CORPUSCULAR VOLUME 91 fL (80-99); MEAN PLATELET VOLUME 10.4 fL (9.0-12.2); MONOCYTES # (AUTO) 0.4 10^3/uL (0.0-1.0); MONOCYTES % (AUTO) 2 % (0-12); NEUTROPHILS # (AUTO) 16.5 10^3/uL (1.8-7.8); NEUTROPHILS % (AUTO) 92 % (42-75); PLATELET COUNT 237 10^3/uL (130-400); WHITE BLOOD COUNT 17.9 10^3/uL (4.3-11.0)
[2020-05-16 05:11] LABS: ALBUMIN 3.6 GM/DL (3.2-4.5)
[2020-05-16 05:12] LABS: CHLORIDE 112 MMOL/L (98-107); POTASSIUM 4.1 MMOL/L (3.6-5.0); SODIUM 138 MMOL/L (135-145)
[2020-05-16 05:13] LABS: CALCIUM 7.4 MG/DL (8.5-10.1)
[2020-05-16 05:14] LABS: GLUCOSE 149 MG/DL (70-105); TOTAL PROTEIN 5.3 GM/DL (6.4-8.2)
[2020-05-16 05:15] LABS: CARBON DIOXIDE 16 MMOL/L (21-32)
[2020-05-16 05:16] LABS: BILIRUBIN,TOTAL 0.3 MG/DL (0.1-1.0)
[2020-05-16 05:17] LABS: ALKALINE PHOSPHATASE 34 U/L (40-136)
[2020-05-16 05:18] LABS: CREATININE SERUM 0.84 MG/DL (0.60-1.30); GFR ESTIMATED > 60
[2020-05-16 05:19] LABS: BUN/CREATININE RATIO 12
[2020-05-16 05:20] LABS: ALANINE AMINOTRANSFERASE 11 U/L (0-55)
[2020-05-16 08:00] VITALS: BP 103/56
--- NOTE | 2020-05-16 09:14 | NUR ---
DR FLORES CALLED TO CHECK ON PATIENT . DIRECTED THIS RN TO CONTACT JANNETH REHMAN(EFRAÍN) AND SEND HOME WITH ANTIBIOTICS, CALL OFFICE TO SCHEDULE F/U, PUSH LIQUIDS ESPECIALLY CAFFIENE AND STRAIN URINE. BRING ANY STONES TO OFFICE.
--- NOTE | 2020-05-16 09:53 | NUR ---
DR KENNY NOTIFIED VIA TEXT OF DR FLORES'S PHONE CONVERSATION.
[2020-05-16] MEDS ORDERED: ONDA-105 PO (11:17)
[2020-05-16] MEDS ORDERED: CEPH500T PO (11:17)
[2020-05-16] MEDS ORDERED: HYDR-4226 PO (11:17)
[2020-05-16] MEDS ORDERED: ACHD5005 PO (11:35)
--- NOTE | 2020-05-16 11:41 | Short Stay Summary ---
Discharge Summary Hospital Course Final Diagnosis: Nephrolithiasis Hospital Course Date of Admission: May 15, 2020 at 22:10 Admission Diagnosis : Right flank pain Nausea/vomiting Family Physician/Provider: Deedee Chadwick Date of Discharge: 05/16/20 Discharge Diagnosis: Right ureterovesical obstructing stone, 3 mm Leukocytosis Hospital Course: Pt found to have nephrolithiasis with uncontrolled pain, vomiting and leukocytosis. She was treated with IVF and pain medication and anti-emetics and tolerated liquids in the morning and was ready for discharge. She was sent with cephalexin and hydrocodone and zofran and instructed to strain urine and push oral fluids. Labs and Pending Lab Test: Laboratory Tests 05/15/20 19:40: Urine Color YELLOW, Urine Clarity CLEAR, Urine pH 5.5, Urine Specific [place] >=1.030, Urine Protein TRACEH, Urine Glucose (UA) NEGATIVE, Urine Ketones 3+H, Urine Nitrite NEGATIVE, Urine Bilirubin NEGATIVE, Urine Urobilinogen 0.2, Urine Leukocyte Esterase NEGATIVE, Urine RBC (Auto) 2+H, Urine RBC NONE, Urine WBC NONE, Urine Squamous Epithelial Cells 2-5, Urine Crystals PRESENTH, Urine Calcium Oxalate Crystals MODERATEH, Urine Bacteria TRACE, Urine Casts NONE, Urine Mucus MODERATEH, Urine Culture Indicated NO, Urine Opiates Screen NEGATIVE, Urine Oxycodone Screen NEGATIVE, Urine Methadone Screen NEGATIVE, Urine Propoxyphene Screen NEGATIVE, Urine Barbiturates Screen NEGATIVE, Ur Tricyclic Antidepressants Screen NEGATIVE, Urine Phencyclidine Screen NEGATIVE, Urine Amphetamines Screen NEGATIVE, Urine Methamphetamines Screen NEGATIVE, Ur ine Benzodiazepines Screen POSITIVEH, Urine Cocaine Screen NEGATIVE, Urine Cannabinoids Screen POSITIVEH 05/15/20 20:19: White Blood Count 16.0H, Red Blood Count 4.43, Hemoglobin 13.2, Hematocrit 39, Mean Corpuscular Volume 88, Mean Corpuscular Hemoglobin 30, Mean Corpuscular Hemoglobin Concent 34, Red Cell Distribution Width 11.6, Platelet Count 371, Mean Platelet Volume 9.9, Immature Granulocyte % (Auto) 1, Neutrophils (%) (Auto) 79H, Lymphocytes (%) (Auto) 16, Monocytes (%) (Auto) 4, Eosinophils (%) (Auto) 1, Basophils (%) (Auto) 0, Neutrophils # (Auto) 12.6H, Lymphocytes # (Auto) 2.5, Monocytes # (Auto) 0.6, Eosinophils # (Auto) 0.1, Basophils # (Auto) 0.0, Immature Granulocyte # (Auto) 0.1, Neutrophils % (Manual) 81, Lymphocytes % (Manual) 12, Monocytes % (Manual) 2, Eosinophils % (Manual) 3, Basophils % (M anual) 0, Band Neutrophils 2, Blood Morphology Comment NORMAL, Sodium Level 140, Potassium Level 3.9, Chloride Level 105, Carbon Dioxide Level 18L, Anion Gap 17H , Blood Urea Nitrogen 12, Creatinine 0.84, Estimat Glomerular Filtration Rate > 60, BUN/Creatinine Ratio 14, Glucose Level 137H, Calcium Level 9.7, Corrected Ca lcium , Total Bilirubin 0.5, Aspartate Amino Transf (AST/SGOT) 15, Alanine Aminotransferase (ALT/SGPT) 12, Alkaline Phosphatase 46, Total Protein 7.4, Albumin 4.8H 05/16/20 04:35: White Blood Count 17.9H, Red Blood Count 3.37L, Hemoglobin 10.1#L, Hematocrit 31L, Mean Corpuscular Volume 91, Mean Corpuscular Hemoglobin 30, Mean Corpuscular Hemoglobin Concent 33, Red Cell Distribution Width 11.9, Platelet Count 237, Mean Platelet Volume 10.4, Immature Granulocyte % (Auto) 1, Neutrophils (%) (Auto) 92H, Lymphocytes (%) (Auto) 5L, Monocytes (%) (Auto) 2, Eosinophils (%) (Auto) 0, Basophils (%) (Auto) 0, Neutrophils # (Auto) 16.5H, Lymphocytes # (Auto) 0.9L, Monocytes # (Auto) 0.4, Eosinophils # (Auto) 0.0, Basophils # (Auto) 0.0, Immature Granulocyte # (Auto) 0.1 05/16/20 04:40: Sodium Level 138, Potassium Level 4.1, Chloride Level 112H, Carbon Dioxide Level 16L, Anion Gap 10, Blood Urea Nitrogen 10, Creatinine 0.84, Estimat Glomerular Filtration Rate > 60, BUN/Creatinine Ratio 12, Glucose Level 149H, Calcium Level 7.4L, Corrected Calcium 7.7L, Total Bilirubin 0.3, Aspartate Amino Transf (AST/SGOT) 14, Alanine Aminotransferase (ALT/SGPT) 11, Alkaline Phosphatase 34L, Total Protein 5.3L, Albumin 3.6 Home Meds Active Hydrocodone-Acetamin 5-325 mg (Hydrocodone/Acetaminophen) 1 Each Tablet 1 Each PO Q4H PRN Ondansetron HCl 4 Mg Tablet 4 Mg PO Q4H PRN Cephalexin 500 Mg Tablet 500 Mg PO QID Lortab 5 Mg Tablet (Acetaminophen/Hydrocodone Bitart) 1 Tab Tab 1 Each PO Q6H PRN Zofran Odt (Ondansetron) 4 Mg Tab.rapdis 4 Mg PO Q6H PRN Assessment/Pt Instructions Follow up with Dr. Smith on 05/20 at 10 am. Follow up with Dr. Falcon as directed. Discharge Instructions Discharge Diet: Regular Diet Activity as Tolerated: Yes Discharge Physical Examination General Appearance: Alert, No Acute Distress Respiratory: Clear to Auscultation, Normal Air Movement Cardiovascular: Regular Rate, No Murmurs Abdominal: Normal Bowel Sounds, Soft, No Tenderness Extremities: No Edema Neuro: Normal Speech Allergies: Coded Allergies: erythromycin base (Unverified Allergy, Mild, 11/02/08) Copy Copies To 1: ISIDRO SMITH MD Discharge Summary Date of Admission May 15, 2020 at 22:10 Date of Discharge Discharge Date: May 16, 2020 Clinical Quality Measures DVT/VTE Risk/Contraindication: Risk Factor Score Per Nursin RFS Level Per Nursing on Admit: 1=Low/No VTE PPX TAMMY CLARKE MD May 16, 2020 11:41
[2020-05-16 12:00] VITALS: BP 117/73
[2020-05-16 12:15] VITALS: BP 117/73
--- NOTE | 2020-05-16 12:30 | NUR ---
JAVI TALLEY demonstrates understanding of discharge instructions and accurately returns instructions upon questioning. Copy of Post-Discharge Instructions and Medication Discharge Instructions given to JESUS. JAVI TALLEY is not able to manage continuing needs after discharge. Patients belongings returned to PATIENT. Skin dry and intact; no breakdown noted. Patient discharged from 415-1 on at . JAVI TALLEY left floor via AMBULATORY, accompanied by STAFF.
--- NOTE | 2020-05-16 14:32 | NUR ---
"RD ASSESSMENT PMHx: SVT PT INTERACTION: Pt was awake and pleasant during dietary consult for MST score. Pt states current appetite is not good, and this has been for the past day. Note no meals have been recorded, per chart review. Pt states following a regular diet at home, and has no issues with chewing/swallowing food. Pt states recent issues with nausea, vomiting, and diarrhea, and that her last BM was 05/15. Note episodes of emesis on 05/16, and not pt not currently on bowel regimen per chart review. Pt states no recent wt changes. Note unable to determine recent wt hx, per chart review. Upon visual assessment, pt appears to be adequately nourished with no visible signs of muscle/fat wasting and a BMI of 21.6 (Normal BMI for age). Given PO intake, wt hx, and visual assessment, pt does not meet criteria for malnutrition per ASPEN guidelines. ABNORMAL NUTRITION-RELATED LAB VALUES LOW: Ca 7.4; alkphos 34; Pro 5.3; HIGH: Cl 112; glu 149 Est. kcal needs: 0777-7977 kcal | 25-30 kcal/kg Est. Pro needs: 50-60 g Pro | 1.0-1.2 g Pro/kg PES STATEMENT: Inadequate oral intake (NI-2.1) related to loss of appetite, nausea, vomiting, and diarrhea, as evidenced by pt interview and chart review. INTERVENTION: Continue with current diet order of Clear Liquid diet. Would recommend diet advancement when medically able and as tolerated. Encouraged pt to eat when able. Will continue to follow and reassess as pt needs, intake, and status change. Karen Alicia, MS RD LD"
[2020-05-16] MEDS ORDERED: cefTRIAXone 1,000 MG/SWFI 10 ML IV PUSH IV SCH ×2 (22:00)
== END 2020-05-16 12:30 | disposition home or self-care (01) ==
LOC: EDUNIT# 19:27 → ER 19:32 → 4TH 22:10
PROVIDERS: ADMIT Family Medicine; ATTEND Family Medicine
DX: N20.0 Calculus of kidney (principal); R11.2 Nausea with vomiting, unspecified; D72.829 Elevated white blood cell count, unspecified; F17.210 Nicotine dependence, cigarettes, uncomplicated; Z88.1 Allergy status to other antibiotic agents
CPT/HCPCS: 74176; 80053 ×2; 80306; 81000; 84703; 85007; 85025; 85027; 99284; G0378; 36415

== ENCOUNTER → 2020-05-18 | Outpatient (CLI) | payer SELFPAY ==
[~2020-05-18] MED LIST changes: +CEPH500T PO; +ONDA-105 PO
--- NOTE | 2020-05-18 16:38 | Diagnostic Imaging Report ---
EXAM: ABDOMEN/KUB 1VIEW INDICATION: Ureteral stone. COMPARISON: CT abdomen and pelvis without contrast 05/15/2020. FINDINGS: The 3 mm renal stone seen at the right ureterovesicular junction on the CT examination is not seen. No suspicious radiopaque foreign bodies. Nonspecific bowel gas pattern. No acute osseous findings. IMPRESSION: No radiopaque renal stones are identified including the previously seen 3 mm UVJ renal stone. Dictated by: Dictated on workstation # [id number]
== END ==
LOC: RAD 13:13
PROVIDERS: ATTEND Urology
DX: N20.1 Calculus of ureter (principal)
CPT/HCPCS: 74018

== ENCOUNTER 2020-05-19 07:49 | Outpatient (RCR) | payer SELFPAY ==
[~2020-05-19] VITALS: Ht 152.4 cm; Wt 55.1 kg
== END 2020-05-19 13:20 | disposition home or self-care (01) ==
LOC: PREOP 07:49
PROVIDERS: ATTEND Urology
DX: Z01.818 Encounter for other preprocedural examination (principal)

== ENCOUNTER 2020-05-31 07:11 | Day surgery (SDC) | payer SELFPAY ==
[2020-05-31] VITALS (9 sets, daily range): BP systolic 89–124; BP diastolic 61–87
[~2020-05-31] VITALS: Ht 152.4 cm; Wt 55.1 kg
[2020-05-31] MEDS ORDERED: LACTATED RINGERS 1,000 ML IV PRN (07:24)
[2020-05-31] MEDS ORDERED: CATHETER FLUSH 10 ML SYR IV PRN (07:30)
[2020-05-31] MEDS ORDERED: cefTRIAXone FOR IV USE 1,000 MG in WATER (STERILE) FOR INJECTION 10 ML IV ONE (07:30)
[2020-05-31] MEDS ORDERED: MIDAZOLAM 2 MG/2 ML (VERSED) VIAL ONE (07:54)
[2020-05-31] MEDS ORDERED: ONDANSETRON 4 MG/2 ML (SDV) Z0FRAN ONE ×2 (07:54→09:12)
[2020-05-31] MEDS ORDERED: fentaNYL INJECTION 100 MCG/2 ML AMP ONE (07:54)
[2020-05-31] MEDS ORDERED: LIDOCAINE PF 2% 5 ML (XYLOCAINE) VIAL ONE (07:54)
[2020-05-31] MEDS ORDERED: proPOfol 200 MG/20 ML (DIPRIVAN) VIAL IV ONE ×2 (07:54→09:12)
[2020-05-31] MEDS ORDERED: SEVOFLURANE (ULTANE) 15 ML INHAL SOLN ONE ×2 (07:54→09:17)
--- NOTE | 2020-05-31 08:08 | Progress Note-Pre Operative ---
Pre-Operative Progress Note H&P Reviewed The H&P was reviewed, patient examined and no changes noted. Date Seen by Provider: May 31, 2020 Time Seen by Provider: 08:08 Date H&P Reviewed: May 31, 2020 Time H&P Reviewed: 08:08 Pre-Operative Diagnosis: RT DISTAL URETERAL STONE TARYN FLORES MD May 31, 2020 08:08
--- NOTE | 2020-05-31 08:22 | Diagnostic Imaging Report ---
Clinical indication: Preop right ureteral stone. Exam: KUB x-ray. Comparison: KUB x-ray dated 05/18/2020. CT scan of the abdomen and pelvis without contrast dated 05/15/2020. Findings: There are no visible focal calcifications overlying the expected regions/ pathways of both kidneys, ureters, and bladder regions. The previously seen 3 mm focal calcification in the right UVJ region is not visible on this exam. There is a nonobstructed bowel gas pattern. There is no evidence of abdominal free air. The visualized bones and extra abdominal soft tissues are unremarkable. Impression: There are no visible urinary tract stones seen on this exam. The previously seen 3 mm focal calcification in the right UVJ, noted on the prior CT scan, is not visible on this exam. Dictated by: Dictated on workstation # [id number]
--- NOTE | 2020-05-31 08:41 | Progress Note-Post Operative ---
Post-Operative Progess Note Surgeon (s)/Financial Institution Vice President (s) Surgeon TARYN FLORES MD Financial Institution Vice President: NONE Pre-Operative Diagnosis RT DISTAL URETERAL STONE Post-Operative Diagnosis SAME Procedure & Operative Findings Date of Procedure 05/31/20 Procedure Performed/Findings RT URETEROSCOPY WITH STONE LITHOTRIPSY Anesthesia Type GENERAL Estimated Blood Loss Estimated blood loss (mL): NONE Specimens/Packing Specimens Removed NONE Packing: NONE TARYN FLORES MD May 31, 2020 08:41
--- NOTE | 2020-05-31 08:42 | Discharge Inst-Urology ---
Discharge Inst-Urology Reconcile Patient Problems Problems Reviewed?: Yes Final Diagnosis RT URETERAL STONE Patient Instructions/Follow Up Plan/Assessment/Instructions Please make appointment to been seen in office in 2 weeks. Increase oral fluids for 48 hours and then as needed. Diet and Activity as tolerated. If questions or concerns contact your physician Or seek help at emergency department. TARYN FLORES MD May 31, 2020 08:42
[2020-05-31] MEDS ORDERED: NITR-65 PO (09:08)
[2020-05-31] MEDS ORDERED: PHEN-640 PO (09:08)
--- NOTE | 2020-05-31 09:13 | Anesthesia-General Post-Op ---
General Patient Condition Mental Status/LOC: Same as Preop Cardiovascular: Satisfactory Nausea/Vomiting: Absent Respiratory: Satisfactory Pain: Controlled Complications: Absent Post Op Complications Complications None Follow Up Care/Instructions Patient Instructions None needed. Anesthesia/Patient Condition Patient Condition Patient is doing well, no complaints, stable vital signs, no apparent adverse anesthesia problems. No complications reported per nursing. CIERRA MANCIA CRNA May 31, 2020 09:13
[2020-05-31] MEDS ORDERED: fentaNYL INJECTION 100 MCG/2 ML AMP IVP ONE (09:15)
[2020-05-31] MEDS ORDERED: ONDANSETRON 4 MG/2 ML (SDV) Z0FRAN IVP PRN (09:15)
[2020-05-31] MEDS ORDERED: KETOROLAC 30 MG/ML VIAL ONE (10:04)
[2020-05-31] MEDS ORDERED: PHENAZOPYRIDINE 100 MG (PYRIDIUM) TABLET ONE (10:10)
[2020-05-31] MEDS ORDERED: PHENAZOPYRIDINE 100 MG (PYRIDIUM) TABLET PO ONE (10:15)
[2020-05-31] MEDS ORDERED: KETOROLAC 30 MG/ML VIAL IVP ONE (10:15)
--- NOTE | 2020-05-31 10:24 | OPERATIVE REPORT ---
DATE OF SERVICE: 05/31/2020 PREOPERATIVE DIAGNOSIS: Right distal ureteral stone. POSTOPERATIVE DIAGNOSIS: Right distal ureteral stone. OPERATION PERFORMED: Right ureteroscopy with stone lithotripsy. SURGEON: Jignesh Flores MD ANESTHESIA: General. COMPLICATIONS: None. DESCRIPTION OF PROCEDURE: Under satisfactory general anesthesia, the patient in lithotomy position, genitalia were prepped and draped in the usual sterile fashion. Cystoscope was introduced and the bladder was inspected and was normal. No foreign body stone visualized. Ureteric orifices normal in shape, size and configuration with clear efflux, sluggish on the right side. Using the foroblique lens, I dilated the right ureteral orifice intramural portion to accommodate a 6.9 [place] semi-rigid ureteroscope, visualized the stone. It was small. It was broken up completely and the fragments were washed down the bladder. I went to ureteroscope all the way to the kidney back and forth to make sure that there is no more fragment no more stones and integrity of the ureter was preserved. I removed the ureteroscope. The patient tolerated the procedure and anesthesia well and was sent to recovery room in stable condition. Job ID: [id number] DocumentID: [id number] Dictated Date: 05/31/2020 09:11:39 Customs Officer Date: 05/31/2020 10:23:32 Dictated By: JIGNESH FLORES MD
== END 2020-05-31 11:25 | disposition home or self-care (01) ==
LOC: SDC 07:11
PROVIDERS: ATTEND Urology
DX: N20.1 Calculus of ureter (principal); Z88.1 Allergy status to other antibiotic agents; Z80.9 Family history of malignant neoplasm, unspecified
CPT/HCPCS: 74018; 76000; 84703; 87081

== ENCOUNTER 2022-07-30 09:07 | Emergency (ER) | payer OTHER ==
[~2022-07-30] VITALS: Ht 152 cm; Wt 58.9 kg
[~2022-07-30 09:07] MED LIST changes: +NITR-65 PO; +PHEN-640 PO
[2022-07-30] MEDS ORDERED: NS IV 1000 ML 1,000 ML IV SCH (09:45)
[2022-07-30] MEDS ORDERED: ONDANSETRON 4 MG/2 ML (SDV) Z0FRAN IVP ONE (09:45)
[2022-07-30] MEDS ORDERED: KETOROLAC 15 MG/ML VIAL IVP ONE (09:45)
--- NOTE | 2022-07-30 09:48 | ED Abdominal Pain ---
General Chief Complaint: Abdominal/GI Problems Stated Complaint: RT SIDE ABD PAIN Nursing Triage Note: ARRIVED VIA AMB WITH COMPLAINTS OF RIGHT ABD PAIN THAT RADIATES INTO HER BACK THAT STARTED A WEEK AGO. (REINALDO GORDON) Source of Information: Patient Exam Limitations: No Limitations (MEGHNA HERBERT DO) History of Present Illness Date Seen by Provider: Jul 30, 2022 Time Seen by Provider: 09:25 Initial Comments 32yo F with h/o kidney stones presents to the ED with sharp, constant, RUQ pain with radiation to upper R thoracic area that started 1 week ago and worsened this morning. Pt rates pain a 7/10 in room and notes that pain initially started out as dull and intermittent but last night became sharp and constant. This morning, pt states that she felt bloated and experienced nausea and vomitingx2, prompting her to come to the ED. Pt states no change in pain with movement and has mild relief with leaning forward and with tylenol and ibuprofen. Pt's last dose of tylenol (650mg) and ibuprofen (800mg) last night before bed. Pt denies any change in pain with eating/with fatty foods and denies pain being similar to kidney stones. Pt denies fevers, chills, CP, SOB, diarrhea, decreased appetite, hematemesis, hematuria, dysuria, and any h/o of alcoholism. (REINALDO GORDON) Allergies and Home Medications Allergies Coded Allergies: erythromycin base (Unverified Allergy, Mild, 11/02/08) Patient Home Medication List Home Medication List Reviewed: Yes (REINALDO GORDON) Hydrocodone Bit/Acetaminophen (HYDROcodone/APAP 5 MG/325 MG TAB) 1 Tab Tab, 1 TAB PO Q6H Prescribed by: MEGHNA HERBERT MD on 07/30/22 1154 Ondansetron (Ondansetron Odt) 8 Mg Tab.rapdis, 8 MG SL Q6H PRN for NAUSEA/VOMITING Prescribed by: MEGHNA HERBERT MD on 07/30/22 1158 Review of Systems Review of Systems Constitutional: No chills, No fever EENTM: No Symptoms Reported Respiratory: Denies Cough, Denies Shortness of Air Cardiovascular: Denies Chest Pain, Denies Edema Gastrointestinal: Abdomen Distended, Abdominal Pain (rad to upper R back ); Denies Diarrhea; Nausea; Denies Poor Appetite; Vomiting (x2) Genitourinary: Denies Burning, Denies Hematuria Musculoskeletal: back pain (rad from abd pain); No joint swelling Skin: no symptoms reported Psychiatric/Neurological: No Symptoms Reported Endocrine: No Symptoms Reported Hematologic/Lymphatic: No Symptoms Reported (REINALDO GORDON) Past Ksrojkz-Yiikzo-Hukddq Hx Patient Social History Tobacco Use?: No Smoking Status: Former Smoker Substance use?: No Alcohol Use?: Yes Alcohol Frequency: Rarely (REINALDO GORDON) Immunizations Up To Date Tetanus Booster (TDap): Unknown (REINALDO GORDON) Seasonal Allergies Seasonal Allergies: No (REINALDO GORDON) Past Medical History Surgeries: Yes (D&C, c/s x2) Section Respiratory: No Currently Using CPAP: No Currently Using BIPAP: No Cardiac: Yes (SVT) Neurological: No Reproductive Disorders: No Sexually Transmitted Disease: No Genitourinary: Yes Kidney Stones (needing lithotripsy) Gastrointestinal: No Musculoskeletal: No Endocrine: No HEENT: No Cancer: No Psychosocial: No Integumentary: No Blood Disorders: No (REINALDO GORDON) Family Medical History FH: cancer GRANDPARENTS Cancer (REINALDO GORDON) Physical Exam Vital Signs Vital Signs - First Documented 07/30/22 09:10 Temp 36.2 Pulse 127 Resp 16 B/P (MAP) 132/95 (107) Pulse Ox 99 O2 Delivery Room Air ([facility]) Vital Signs Capillary Refill : Less Than 3 Seconds (REINALDO GORDON) Height/Weight/BMI Height: 5'1" Weight: 120lbs. 9.0oz. [id number]; 25.00 BMI Method:Stated General Appearance: WD/WN, no apparent distress HEENT: PERRL/EOMI Respiratory: lungs clear, normal breath sounds, no respiratory distress, no accessory muscle use Cardiovascular: no murmur, tachycardia Peripheral Pulses: 2+ Dorsalis Pedis (R), 2+ Left Dors-Pedis (L) Gastrointestinal: soft, tenderness (mild RUQ tenderness; neg lassiter's ) Extremities: no pedal edema, no calf tenderness Back: other (Tenderness with palpation R upper thoracic over paraspinal musculature) Neurologic/Psychiatric: alert, oriented x 3 Skin: normal color, warm/dry (REINALDO GORDON) Progress/Results/Core Measures Results/Orders Lab Results Laboratory Tests Test 07/30/22 09:20 07/30/22 11:12 Range/Units Urine Color YELLOW Urine Clarity CLEAR Urine pH 5.5 5-9 Urine Specific [place] >=1.030 1.016-1.022 Urine Protein NEGATIVE NEGATIVE Urine Glucose (UA) NEGATIVE NEGATIVE Urine Ketones NEGATIVE NEGATIVE Urine Nitrite NEGATIVE NEGATIVE Urine Bilirubin NEGATIVE NEGATIVE Urine Urobilinogen 0.2 < = 1.0 MG/DL Urine Leukocyte Esterase NEGATIVE NEGATIVE Urine RBC (Auto) 2+ H NEGATIVE Urine RBC 10-25 H /HPF Urine WBC 0-2 /HPF Urine Squamous Epithelial Cells 25-50 H /HPF Urine Crystals NONE /LPF Urine Bacteria FEW H /HPF Urine Casts NONE /LPF Urine Mucus MODERATE H /LPF Urine Culture Indicated NO Urine Test NEGATIVE NEGATIVE White Blood Count 8.7 4.3-11.0 10^3/uL Red Blood Count 4.42 3.80-5.11 10^6/uL Hemoglobin 13.3 11.5-16.0 g/dL Hematocrit 39 35-52 % Mean Corpuscular Volume 89 80-99 fL Mean Corpuscular Hemoglobin 30 25-34 pg Mean Corpuscular Hemoglobin Concent 34 32-36 g/dL Red Cell Distribution Width 11.3 10.0-14.5 % Platelet Count 277 130-400 10^3/uL Mean Platelet Volume 9.7 9.0-12.2 fL Immature Granulocyte % (Auto) 0 % Neutrophils (%) (Auto) 80 H 42-75 % Lymphocytes (%) (Auto) 15 12-44 % Monocytes (%) (Auto) 4 0-12 % Eosinophils (%) (Auto) 1 0-10 % Basophils (%) (Auto) 0 0-10 % Neutrophils # (Auto) 6.9 1.8-7.8 10^3/uL Lymphocytes # (Auto) 1.3 1.0-4.0 10^3/uL Monocytes # (Auto) 0.3 0.0-1.0 10^3/uL Eosinophils # (Auto) 0.1 0.0-0.3 10^3/uL Basophils # (Auto) 0.0 0.0-0.1 10^3/uL Immature Granulocyte # (Auto) 0.0 0.0-0.1 10^3/uL Sodium Level 137 135-145 MMOL/L Potassium Level 3.8 3.6-5.0 MMOL/L Chloride Level 107 98-107 MMOL/L Carbon Dioxide Level 20 L 21-32 MMOL/L Anion Gap 10 5-14 MMOL/L Blood Urea Nitrogen 8 7-18 MG/DL Creatinine 0.67 0.60-1.30 MG/DL Estimat Glomerular Filtration Rate 119 BUN/Creatinine Ratio 12 Glucose Level 104 70-105 MG/DL Calcium Level 9.1 8.5-10.1 MG/DL Corrected Calcium 8.9 8.5-10.1 MG/DL Total Bilirubin 0.5 0.1-1.0 MG/DL Aspartate Amino Transf (AST/SGOT) 19 5-34 U/L Alanine Aminotransferase (ALT/SGPT) 27 0-55 U/L Alkaline Phosphatase 47 40-136 U/L Total Protein 7.0 6.4-8.2 GM/DL Albumin 4.2 3.2-4.5 GM/DL Lipase 26 8-78 U/L (MEGHNA HERBERT DO) My Orders Orders - MEGHNA HERBERT DO Comprehensive Metabolic Panel (07/30/22 09:39) Lipase (07/30/22 09:39) Cbc With Automated Diff (07/30/22 09:39) Ua Culture If Indicated (07/30/22 09:39) Hcg,Qualitative Urine (07/30/22 09:39) Ns Iv 1000 Ml (Sodium Chloride 0.9%) (07/30/22 09:45) Ketorolac Injection (Toradol Injection) (07/30/22 09:45) Ondansetron Injection (Zofran Injectio (07/30/22 09:45) Us Gallbladder [id number] (07/30/22 09:47) Ondansetron Oral Dissolve Tab (Zofran (07/30/22 10:43) Ondansetron Oral Dissolve Tab (Zofran (07/30/22 10:42) Ibuprofen Tablet (Motrin Tablet) (07/30/22 11:15) (MEGHNA HERBERT DO) Medications Given in ED (MEGHNA HERBERT DO) Vital Signs/I&O 07/30/22 07/30/22 09:10 12:13 Temp 36.2 Pulse 127 96 Resp 16 16 B/P (MAP) 132/95 (107) 116/82 Pulse Ox 99 96 O2 Delivery Room Air Room Air (MEGHNA HERBERT DO) Blood Pressure Mean: 107 Departure Communication (Admissions) Patient's symptoms concerning for biliary colic, pancreatitis, bowel or stomach issue. Ultrasound obtained focusing on the right upper quadrant which is negative. There is no hydronephrosis, dilation of the ureter and no identified kidney stone. No secondary signs of kidney stone or infection. UA is clear except for some trace blood. Her CBC shows no leukocytosis, thrombocytopenia, anemia. Chemistry panel shows no evidence of electrolyte abnormality with normal sodium, potassium, calcium, phosphorus. Renal function is normal as well. LFTs and lipase are normal. Patient's symptoms have improved after provided pain medications, nearly pain-free at the time of reevaluation. I did recommend she get a possible HIDA scan as an outpatient as this may still be biliary in origin given its presentation. She is discharged in stable condition with supportive care and close follow-up. (MEGHNA HERBERT DO) Impression Primary Impression: RUQ abdominal pain Disposition: HOME, SELF-CARE Condition: Stable Departure-Patient Inst. Referrals: [facility]/K (PCP/Family) Primary Care Physician Patient Instructions: Abdominal Pain, Adult ED Add. Discharge Instructions: As discussed there is no obvious emergent cause of your symptoms today. I do recommend you have a HIDA scan as an outpatient. Call the [facility] clinic and schedule a follow-up appointment for them to further look into this. Use pain medications as discussed as needed. Do not drive while taking this as it may make you drowsy. Use nausea meds as needed. Return to the emergency department for any intractable pain is not controlled with pain medications, if you are unable to tolerate food or fluids or if your symptoms change in any way concerni ng to you. All discharge instructions reviewed with patient and/or family. Voiced understanding. Scripts Ondansetron (Ondansetron Odt) 8 Mg Tab.rapdis 8 MG SL Q6H PRN for NAUSEA/VOMITING for 5 Days, #20 TAB Prov: MEGHNA HERBERT DO 07/30/22 Hydrocodone Bit/Acetaminophen (HYDROcodone/APAP 5 MG/325 MG TAB) 1 Tab Tab 1 TAB PO Q6H for Pain for 3 Days, #12 TAB Prov: MEGHNA HERBERT DO 07/30/22 REINALDO GORDON Jul 30, 2022 09:48 MEGHNA HERBERT DO Jul 30, 2022 11:49
[2022-07-30 10:24] LABS: BILIRUBIN,URINE NEGATIVE (NEGATIVE); CLARITY,URINE CLEAR; COLOR,URINE YELLOW; GLUCOSE, URINE (UA) NEGATIVE (NEGATIVE); KETONES,URINE NEGATIVE (NEGATIVE); LEUKOCYTE ESTERASE ,URINE NEGATIVE (NEGATIVE); NITRITE,URINE NEGATIVE (NEGATIVE); PH,URINE 5.5 (5-9); PROTEIN,URINE NEGATIVE (NEGATIVE)
[2022-07-30 10:34] LABS: BACTERIA,URINE FEW /HPF; SQUAMOUS EPITHELIAL CELL,UR 25-50 /HPF; WBC,URINE 0-2 /HPF
[2022-07-30] MEDS ORDERED: ONDANSETRON 4 MG (ZOFRAN) ORAL DISSOLVE TAB ONE (10:42)
[2022-07-30] MEDS ORDERED: ONDANSETRON 4 MG (ZOFRAN) ORAL DISSOLVE TAB PO STA (10:43)
[2022-07-30] MEDS ORDERED: IBUPROFEN 600 MG (MOTRIN) TAB PO ONE (11:15)
[2022-07-30 11:25] LABS: BASOPHILS % (AUTO) 0 % (0-10); EOSINOPHILS # (AUTO) 0.1 10^3/uL (0.0-0.3); EOSINOPHILS % (AUTO) 1 % (0-10); HEMATOCRIT 39 % (35-52); HEMOGLOBIN 13.3 g/dL (11.5-16.0); LYMPHOCYTES # (AUTO) 1.3 10^3/uL (1.0-4.0); LYMPHOCYTES % (AUTO) 15 % (12-44); MEAN CORPUSCULAR HEMOGLOBIN 30 pg (25-34); MEAN CORPUSCULAR HGB CONC 34 g/dL (32-36); MEAN CORPUSCULAR VOLUME 89 fL (80-99); MEAN PLATELET VOLUME 9.7 fL (9.0-12.2); MONOCYTES # (AUTO) 0.3 10^3/uL (0.0-1.0); MONOCYTES % (AUTO) 4 % (0-12); NEUTROPHILS # (AUTO) 6.9 10^3/uL (1.8-7.8); NEUTROPHILS % (AUTO) 80 % (42-75); PLATELET COUNT 277 10^3/uL (130-400); WHITE BLOOD COUNT 8.7 10^3/uL (4.3-11.0)
[2022-07-30 11:30] LABS: ALBUMIN 4.2 GM/DL (3.2-4.5); POTASSIUM 3.8 MMOL/L (3.6-5.0)
[2022-07-30 11:31] LABS: CALCIUM 9.1 MG/DL (8.5-10.1)
--- NOTE | 2022-07-30 11:33 | Diagnostic Imaging Report ---
PROCEDURE: US Gallbladder. TECHNIQUE: Multiple Real-time grayscale images were obtained over the right upper quadrant in various projections. INDICATION: Right upper quadrant pain. FINDINGS: There is an echogenic mass in the right hepatic lobe at the dome measuring 1.4 cm, favored to be but inconclusive for a hemangioma. A nonemergent outpatient hemangioma protocol pre and multiphasic post contrast enhanced abdominal CT is recommended to confirm that benign entity. The gallbladder is normal. There is no stone or sludge. The liver appears otherwise normal. The visualized portions of the pancreas, aorta, and IVC are normal. The unobstructed right kidney measures 10.5 cm and appears normal. The portal vein is patent and shows hepatopetal directional flow. IMPRESSION: 1. Probable echogenic mass versus focal fatty infiltration in the right hepatic lobe at the dome. A nonemergent correlative hemangioma protocol CT versus MR is suggested as an outpatient. 2. No biliary pathology. Unobstructed right kidney. No acute appearing abnormality. Dictated by: Dictated on workstation # [id number]
[2022-07-30 11:34] LABS: BILIRUBIN,TOTAL 0.5 MG/DL (0.1-1.0)
[2022-07-30 11:36] LABS: CREATININE SERUM 0.67 MG/DL (0.60-1.30)
[2022-07-30] MEDS ORDERED: ONDA8TAB13 SL (11:53)
[2022-07-30] MEDS ORDERED: ACHD5005 PO (11:53)
[2022-07-30 12:13] VITALS: BP 116/82
== END 2022-07-30 12:08 | disposition home or self-care (01) ==
LOC: EDUNIT# 09:07 → ER 09:10
DX: R10.11 Right upper quadrant pain (principal); M54.6 Pain in thoracic spine; Z87.891 Personal history of nicotine dependence; Z87.442 Personal history of urinary calculi; Z28.310 Unvaccinated for COVID-19
CPT/HCPCS: 36415; 76705; 80053; 81000; 83690; 84703; 85025

== ENCOUNTER 2022-12-05 17:21 | Emergency (ER) | payer OTHER ==
[~2022-12-05] VITALS: Ht 152.4 cm; Wt 62.0 kg
[~2022-12-05 17:21] MED LIST changes: +ONDA8TAB13 SL
[2022-12-05 17:26] VITALS: BP 145/89
--- NOTE | 2022-12-05 17:38 | ED Upper Extremity ---
General Chief Complaint: Upper Extremity Stated Complaint: SHOULDER PAIN Nursing Triage Note: C/O LEFT SHOULDER PAIN ONE WEEK AGO AND TODAY BEGAN HAVING TINGLING PAIN IN LEFT SHOULDER WITH NUMBNESS BOTH ANTERIOR AND POSTERIER, DENIES INJURY Source: patient Exam Limitations: no limitations History of Present Illness Date Seen by Provider: December 05, 2022 Time Seen by Provider: 17:30 Initial Comments 32-year-old female presents for left shoulder pain. Symptoms about a week now. She woke up with symptoms and does not recall any specific injury or overuse type mechanism she has some numbness beneath her scapula on the left side. No weakness of her arm. No axillary loss of sensation. All other systems reviewed and negative except documented per HPI. Voice recognition software was used to help create this chart Allergies and Home Medications Allergies Coded Allergies: erythromycin base (Unverified Allergy, Mild, 11/02/08) Patient Home Medication List Home Medication List Reviewed: Yes Hydrocodone Bit/Acetaminophen (HYDROcodone/APAP 5 MG/325 MG TAB) 1 Tab Tab, 1 TAB PO Q6H Prescribed by: MEGHNA HERBERT MD on 07/30/22 1154 Ondansetron (Ondansetron Odt) 8 Mg Tab.rapdis, 8 MG SL Q6H PRN for NAUSEA/VOMITING Prescribed by: MEGHNA HERBERT MD on 07/30/22 1153 Review of Systems Constitutional: see HPI Past Rhrdujp-Wklttj-Lemamy Hx Patient Social History Tobacco Use?: No Use of E-Cig and/or Vaping dev: No Substance use?: No Alcohol Use?: Yes Alcohol type: Beer Alcohol Frequency: Once in a while Immunizations Up To Date Tetanus Booster (TDap): Unknown Seasonal Allergies Seasonal Allergies: No Past Medical History Surgery/Hospitalization HX: PMH-TACHYCARDIA SURG- 2 C SECTIONS Surgeries: Yes (D&C, c/s x2) Section Respiratory: No Currently Using CPAP: No Currently Using BIPAP: No Cardiac: Yes (SVT) Neurological: No Reproductive Disorders: No Sexually Transmitted Disease: No Genitourinary: Yes Kidney Stones Gastrointestinal: No Musculoskeletal: No Endocrine: No HEENT: No Cancer: No Psychosocial: No Integumentary: No Blood Disorders: No Family Medical History FH: cancer GRANDPARENTS Cancer Physical Exam Vital Signs Vital Signs - First Documented 12/05/22 17:26 Temp 36.9 Pulse 123 Resp 18 B/P (MAP) 145/89 (107) Pulse Ox 99 O2 Delivery Room Air Capillary Refill : Less Than 3 Seconds Height, Weight, BMI Height: 5'1" Weight: 120lbs. 9.0oz. 54.443055yn; 26.00 BMI Method:Stated General Appearance: WD/WN, no apparent distress Shoulder: soft tissue tenderness (Soft tissue tenderness in the trapezius muscle superiorly. There is also tenderness to the medial aspect of the scapula location of the trigger point. Motor and sensory intact. Axillary sensations intact.) Neurologic/Tendon: normal sensation, normal motor functions, normal tendon functions Neurologic/Psychiatric: alert, normal mood/affect, oriented x 3 Progress/Results/Core Measures Results/Orders Vital Signs/I&O 12/05/22 17:26 Temp 36.9 Pulse 123 Resp 18 B/P (MAP) 145/89 (107) Pulse Ox 99 O2 Delivery Room Air Blood Pressure Mean: 107 Departure Communication (Admissions) Patient is hemodynamically stable. Neurovascular and sensory intact. No bony tenderness. No indication for imaging. Discharged in stable condition. Impression Primary Impression: Musculoskeletal pain of extremity Disposition: 01 HOME, SELF-CARE Condition: Stable Departure-Patient Inst. Referrals: [facility] (PCP/Family) Primary Care Physician Add. Discharge Instructions: Alternate anti-inflammatory such as Motrin or Aleve with Tylenol. Try to rest the shoulder is much as possible. If your symptoms persist I recommend you follow-up with your primary doctor. All discharge instructions reviewed with patient and/or family. Voiced understanding. MEGHNA HERBERT DO December 05, 2022 17:38
== END 2022-12-05 17:40 | disposition home or self-care (01) ==
LOC: EDUNIT# 17:21 → ER 17:22
DX: M25.512 Pain in left shoulder (principal)
CPT/HCPCS: 99281

== ENCOUNTER → 2023-02-21 | Outpatient (CLI) | payer OTHER ==
--- NOTE | 2023-02-21 14:17 | Diagnostic Imaging Report ---
EXAMINATION: CT cervical spine without contrast. TECHNIQUE: Multiple contiguous axial images were obtained through the cervical spine without the use of intravenous contrast. Sagittal and coronal reformations through the cervical spine were then performed. All CT scans use one or more of the following dose optimizing techniques: automated exposure control, MA and/or KvP adjustment based on patient size and exam type or iterative reconstruction. HISTORY: NECK PAIN COMPARISON: 03/23/2016 FINDINGS: Vertebral body height and alignment are preserved. No acute fracture, dislocation, or destructive osseous process. No significant facet hypertrophy. No significant central canal or neuroforaminal stenosis. The paraspinous soft tissues are normal. The visualized thyroid gland is normal. The visualized lung apices are normal. IMPRESSION: 1. No acute osseous abnormality of the cervical spine. Dictated by: Dictated on workstation # [id number]
== END ==
LOC: RAD 12:53
PROVIDERS: ATTEND Nurse Practitioner Family
DX: M54.2 Cervicalgia (principal)
CPT/HCPCS: 72125

== ENCOUNTER → 2023-06-12 | Outpatient (CLI) | payer OTHER ==
--- NOTE | 2023-06-12 13:04 | Diagnostic Imaging Report ---
INDICATION: URINARY INCONTINENCE, LOW BACK PAIN, LOW ABDOMINAL PAIN COMPARISON: 05/31/2020. FINDINGS: Single supine radiographic view of the abdomen was obtained and demonstrates nondistended loops of small bowel. There is no large collection of free peritoneal air. Mild air and stool are seen scattered throughout the colon. No unexpected extraosseous calcifications or radiopaque foreign bodies are seen. Bony structures show no gross acute abnormalities. IMPRESSION: 1. Nonobstructed small bowel gas pattern. Dictated by: Dictated on workstation # [id number]
--- NOTE | 2023-06-12 13:07 | Diagnostic Imaging Report ---
INDICATION: MIGRAINES, HEADACHE, TMJ TECHNIQUE: Routine non contrast-enhanced axial images were obtained from the skull base to the vertex. Auto Exposure Controls were utilized during the CT exam to meet ALARA standards for radiation dose reduction COMPARISON: 03/23/2016. FINDINGS: The ventricles and cortical sulci are normal in size and contour. There is no midline shift or mass-effect. No acute intra-axial hemorrhage is seen. There are no abnormal areas of increased or decreased density to suggest acute hemorrhage or edema. No extra-axial masses or collections are present. The bony calvarium is intact. The visualized paranasal sinuses are unremarkable. The mastoid air cells are clear. IMPRESSION: 1. No acute intracranial abnormality. No CT evidence of mass, acute infarct or intracranial hemorrhage. Dictated by: Dictated on workstation # [id number]
== END ==
LOC: RAD 12:30
PROVIDERS: ATTEND Nurse Practitioner Family
DX: G43.909 Migraine, unspecified, not intractable, without status migrainosus (principal); M54.50 Low back pain, unspecified; R32 Unspecified urinary incontinence; R10.30 Lower abdominal pain, unspecified
CPT/HCPCS: 70450; 74018